=== PATIENT | female | born 1965 | race Caucasian/White ===

== ENCOUNTER 2017-04-19 13:50 | Emergency (ER) | payer BC ==
[2017-04-19 14:31] VITALS: BP 116/72
--- NOTE | 2017-04-19 15:46 | UC ---
Throat Pain/Nasal Luis Armando HPI - HPI Summary HPI Summary: 52 y/o male presents to the urgent care c/o sore throat for the past 2 days. Pt reports pain when swallowing, subjective fever at home. Swollen and painful neck glands. Pt has not taking anything to alleviate symptoms. Pain is 7/10. Pt denies cough, SOB, chest pain, N/V/D, abdominal pain or rash. - History of Current Complaint Chief Complaint: UCRespiratory Stated Complaint: THROAT COMPLAINT Time Seen by Provider: 04/19/17 15:38 Hx Obtained From: Patient Hx Last Menstrual Period: yrs ?: No Onset/Duration: Gradual Onset, Lasting Days - 2 days Severity: Moderate Pain Intensity: 7 Pain Scale Used: 0-10 Numeric Cough: None Associated Signs & Symptoms: Positive: Dysphagia, Fever - Epiglottits Risk Factors Epiglottis Risk Factors: Negative - Allergies/Home Medications Allergies/Adverse Reactions: Allergies Allergy/AdvReac Type Severity Reaction Status Date / Time No Known Allergies Allergy Verified 04/19/17 14:31 Home Medications: Home Medications Famotidine [Pepcid] 40 mg PO BID 04/19/17 [History Confirmed 04/19/17] Folic Acid TAB* [Folvite TAB*] 1 mg PO DAILY 04/19/17 [History Confirmed ] Methotrexate TAB* 6 tab PO Q7D 04/19/17 [History Confirmed 04/19/17] Sertraline* [Zoloft*] 50 - 100 mg PO BEDTIME 04/19/17 [History Confirmed ] PMH/Surg Hx/FS Hx/Imm Hx Previously Healthy: Yes Other Endocrine History: Rheumathoid arthritits Psychological History: Depression - Surgical History Surgical History: Yes Surgery Procedure, Year, and Place: , hernia repair, gall bladder - Family History Known Family History: Positive: Diabetes - Social History Occupation: Employed Full-time Lives: With Family Alcohol Use: None Substance Use Type: None Smoking Status (MU): Never Smoked Tobacco Review of Systems Constitutional: Fever Skin: Negative Eyes: Negative ENT: Sore Throat Respiratory: Negative Cardiovascular: Negative Gastrointestinal: Negative Genitourinary: Negative Motor: Negative Neurovascular: Negative Musculoskeletal: Negative Neurological: Negative Psychological: Negative Is Patient Immunocompromised?: No All Other Systems Reviewed And Are Negative: Yes Physical Exam Triage Information Reviewed: Yes Vital Signs: Initial Vital Signs Temp 98.6 F 04/19/17 14:26 Pulse 85 04/19/17 14:26 Resp 18 04/19/17 14:26 BP 116/72 04/19/17 14:26 - Additional Comments VITAL SIGNS: Reviewed. GENERAL: Patient is a well developed and nourished female who is sitting comfortable in the examining table. Patient is not in any acute respiratory distress. HEAD AND FACE: No signs of trauma. No ecchymosis, hematomas or skull depressions. No sinus tenderness. EYES: PERRLA, EOMI x 2, No injected conjunctiva, no nystagmus. No photophobia. EARS: Hearing grossly intact. Ear canals and tympanic membranes are within normal limits. MOUTH: Positive pharynx with erythema, exudates, palatal petechiae. B/L tonsillar enlargement with exudate. Uvula in midline. NECK: Supple, trachea is midline, Positive anterior cervical lymphadenopathy, no JVD, no carotid bruit, no c-spine tenderness, neck with full ROM. CHEST: Symmetric, no tenderness at palpation LUNGS: Clear to auscultation bilaterally. No wheezing or crackles. CVS: Regular rate and rhythm, S1 and S2 present, no murmurs or gallops appreciated. ABDOMEN: Soft, non-tender. No signs of distention. No rebound no guarding, and no masses palpated. Bowel sounds are normal. EXTREMITIES: FROM in all major joints, no edema, no cyanosis or clubbing. NEURO: Alert and oriented x 3. No acute neurological deficits. Speech is normal and follows commands. SKIN: Dry and warm Throat Pain/Nasal Course/Dx - Course Assessment/Plan: 52 y/o male presents to the urgent care c/o sore throat for the past 2 days. Pt reports pain when swallowing, subjective fever at home. Swollen and painful neck glands. Pt has not taking anything to alleviate symptoms. Pain is 7/10. Pt denies cough, SOB, chest pain, N/V/D, abdominal pain or rash. Hx obtained. Rapid strep ordered: result: positive. Strep pharyngitis. Rx Keflex PO since Pt w/PMHX of RA and on Metrotrexate, and Ibuprofen PO for pain and swelling. PT Advised on hand washing to avoid spreading. Also advised to rest, eat well and avoid strenuous exercise. If symptoms do not improve or worsen advised to return to the urgent care or f/u with her PCP for further evaluation and treatment. PT understood and agreed - Differential Dx/Diagnosis Differential Diagnosis/HQI/PQRI: Influenza, Laryngitis, Mononucleosis, Otitis Media, Peritonsillar Abscess, Pharyngitis, Tonsillitis Provider Diagnoses: 1- Strep pharyngitis Discharge - Discharge Plan Condition: Stable Disposition: HOME Prescriptions: Acetaminophen TAB* [Tylenol TAB*] 650 mg PO Q6H PRN #20 tab PRN Reason: Sore Throat Cephalexin CAP* [Keflex CAP*] 500 mg PO BID #20 cap Patient Education Materials: Strep Throat (ED) Referrals: Ruth Nava MD [Medical Doctor] - If Needed Additional Instructions: 1- Please take the full course of the antibiotic to avoid resistance. 2-Please take Tylenol PO q6 prn to alleviate pain and swelling. Encourage hand washing 3-If symptoms do not improve or worsen please return to the urgent care or f/u with your PCP for further evaluation and treatment.
== END 2017-04-19 15:59 | disposition home or self-care (01) ==
LOC: UCCORT 13:50
DX: J02.9 Acute pharyngitis, unspecified (principal); Z88.0 Allergy status to penicillin
CPT/HCPCS: 87651; 99212; G0463

== ENCOUNTER 2019-06-11 19:36 | Emergency (ER) | payer BC ==
[2019-06-11 20:27] VITALS: BP 117/83
[2019-06-11] MEDS ORDERED: Tetan/Diph/Pertus SYR(Tdap)* 0.5 ML SYR(BOOSTRIX) use SYR contains LATEX IM ONE (20:42)
--- NOTE | 2019-06-11 20:51 | ED ---
Upper Extremity Pain - HPI Summary HPI Summary: 54 yr old was cutting her dog's toe nails with a nail clipper and it slipped and she cut the proximal right index finger near the base. She has no numbness , no tingling in the finger tip. No other injuries. She does not know the last tetanus shot. She has no other complaints. - History of Current Complaint Chief Complaint: UCLaceration Stated Complaint: RT INDEX FINGER LACERATION Time Seen by Provider: 06/11/19 20:36 Hx Last Menstrual Period: yrs - Allergies/Home Medications Allergies/Adverse Reactions: Allergies Allergy/AdvReac Type Severity Reaction Status Date / Time No Known Allergies Allergy Verified 04/19/17 14:31 Home Medications: Home Medications Famotidine TAB* [Pepcid 20 MG TAB*] 20 mg PO DAILY 06/11/19 [History Confirmed 06/11/19] Tofacitinib Citrate [Xeljanz] 5 mg PO DAILY 06/11/19 [History Confirmed 06/11/19 ] PMH/Surg Hx/FS Hx/Imm Hx Endocrine/Hematology History: Denies: Hx Diabetes, Hx Thyroid Disease Cardiovascular History: Reports: Hx Hypertension Respiratory History: Denies: Hx Asthma - Cancer History Hx Chemotherapy: No Hx Radiation Therapy: No - Surgical History Surgery Procedure, Year, and Place: , hernia repair, gall bladder Infectious Disease History: No Infectious Disease History: Reports: 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 All Other Systems Reviewed And Are Negative: Yes Physical Exam Triage Information Reviewed: Yes Vital Signs On Initial Exam: Initial Vitals Temp Pulse Resp BP Pulse Ox 99.0 F 75 16 117/83 99 06/11/19 20:23 06/11/19 20:23 06/11/19 20:23 06/11/19 20:23 06/11/19 20:23 Vital Signs Reviewed: Yes Appearance: Positive: Well-Appearing, No Pain Distress Skin: Positive: Warm, Skin Color Reflects Adequate Perfusion, Other - 5 mm puncture, laceration right proximal medial index finger without bleeding. No joint or tendon involvement. Head/Face: Positive: Normal Head/Face Inspection Eyes: Positive: EOMI ENT: Positive: Normal ENT inspection Neck: Positive: Nontender Respiratory/Lung Sounds: Positive: Clear to Auscultation Cardiovascular: Positive: Pulses are Symmetrical in both Upper and Lower Extremities Abdomen Description: Negative: Distended Musculoskeletal: Positive: Strength/ROM Intact, Other - normal sensation digits right hand. Neurological: Positive: Sensory/Motor Intact, Alert, Oriented to Person Place, Time, CN Intact II-III Psychiatric: Positive: Normal Diagnostics - Vital Signs Vital Signs Temp Pulse Resp BP Pulse Ox 06/11/19 20:23 99.0 F 75 16 117/83 99 - Laboratory Lab Statement: Any lab studies that have been ordered have been reviewed, and results considered in the medical decision making process. Course/Dx - Course Course Of Treatment: 54 yr old with small puncture, lacreation from dog nail cutters. WOund irrigated, dressed. recommend local care. No closure of wound as it is not large and at risk for infection on the hand and given exposure to dog clippers. recommend dressing changes twice daily and cleaning of wound twice daily with soap and water with antibiotic ointment appications. - Diagnoses Provider Diagnoses: Puncture wound of right index finger Discharge ED - Sign-Out/Discharge Documenting (check all that apply): Patient Departure All imaging exams completed and their final reports reviewed: No Studies - Discharge Plan Condition: Good Disposition: HOME Patient Education Materials: Puncture Wound (ED), Laceration (ED) Referrals: Aleta Enriquez NP [Primary Care Provider] - Additional Instructions: clean your finger twice a day with plain soap and water. Apply new antibiotic ointment twice a day after cleaning and a clean dressing. Return for any redness, swelling, fever, chills. - Billing Disposition and Condition Condition: GOOD Disposition: Home
== END 2019-06-11 21:41 | disposition home or self-care (01) ==
LOC: UCCORT 19:36
DX: S61.210A Laceration without foreign body of right index finger without damage to nail, initial encounter (principal); S61.230A Puncture wound without foreign body of right index finger without damage to nail, initial encounter; I10 Essential (primary) hypertension; W26.8XXA Contact with other sharp object(s), not elsewhere classified, initial encounter; Y93.K3 Activity, grooming and shearing an animal; Y92.9 Unspecified place or not applicable
CPT/HCPCS: 90471; 90715; 99212; G0463